=== PATIENT | male | born 1955 | race Two or more races ===

== ENCOUNTER 2019-03-24 18:21 | Inpatient (IN) | payer MEDICARE, MEDICAID ==
[~2019-03-24] VITALS: Ht 152.4 cm; Wt 86.7 kg
[2019-03-24] MEDS ORDERED: SODIUM CHLORIDE 0.9% 1,000ML IVBOLUS ONE (18:30)
[2019-03-24] MEDS ORDERED: KETOROLAC 30 MG/1 ML IVPush ONE (18:30)
[2019-03-24] MEDS ORDERED: SODIUM CHLORIDE FLUSH 10ML SYR IVF ONE (18:30)
[2019-03-24] MEDS ORDERED: ONDANSETRON 2MG/ML, 2ML IVPush ONE (18:30)
[2019-03-24] MEDS ORDERED: PROMETHAZINE 25 MG/ML, 1ML IM ONE (18:30)
--- NOTE | 2019-03-24 18:33 | NUR ---
ANETTE. REPORT RECEIVED FROM EMS. PT STATES "I DON'T FEEL GOOD SINCE 3PM." PT C/O N/V/FAGAN. BS227 HX DM. PT'S AOX4. RESPS EVEN AND UNLABORED. ALL MONITORS IN PLACE. CALL LIGHT WITHIN REACH. EDMD AT BEDSIDE TO EVALUATE.
[2019-03-24 18:40] LABS: BASOPHILS # (AUTO) 0.08 x10^3/uL (0-0.1); BASOPHILS % (AUTO) 1 % (0-1); EOSINOPHILS # (AUTO) 0.01 x10^3/uL (0-0.4); EOSINOPHILS % (AUTO) 0 % (1-7); LYMPHOCYTES # (AUTO) 1.39 x10^3/uL (1-3.4); LYMPHOCYTES % (AUTO) 10 % (22-44); MD NO; MEAN CORPUSCULAR HEMOGLOBIN 24.9 pg (27.5-34.5); MEAN CORPUSCULAR HGB CONC 31.5 g/dL (33.2-36.2); MEAN PLATELET VOLUME 8.8 fL (7.4-10.4); MONOCYTES # (AUTO) 0.41 x10^3/uL (0.2-0.8); MONOCYTES % (AUTO) 3 % (2-9); NEUTROPHILS # (AUTO) 12.49 x10^3/uL (1.8-6.8); NEUTROPHILS % (AUTO) 87 % (42-75); PLATELET COUNT 306 x10^3/uL (130-400); RED BLOOD COUNT 5.24 x10^6/uL (4.38-5.82); RED CELL DISTRIBUTION WIDTH 14.9 % (9.4-14.8)
--- NOTE | 2019-03-24 18:45 | NUR ---
FLU SWAB OBTAINED BY EDMD AT BEDSIDE. PT TOLERATED WELL.
[2019-03-24 18:52] LABS: ALANINE AMINOTRANSFERASE 33 U/L (12-78); ALBUMIN 3.8 g/dL (3.4-5.0); ANION GAP 7 mmol/L (5-15); CALCIUM 8.9 mg/dL (8.5-10.1); CHLORIDE 105 mmol/L (98-107); CREATININE 1.09 mg/dL (0.7-1.3)
[2019-03-24 18:56] LABS: RAPID INFLUENZA A Negative (Negative); RAPID INFLUENZA B Negative (Negative)
[2019-03-24 18:57] LABS: ALKALINE PHOSPHATASE 106 U/L (45-117); BILIRUBIN,TOTAL 0.3 mg/dL (0.2-1.0); TOTAL PROTEIN 7.7 g/dL (6.4-8.2); TROPONIN I < 0.015 ng/mL (0.000-0.045)
--- NOTE | 2019-03-24 19:00 | NUR ---
REPORT GIVEN TO ROSALINO/DESHAWN MEDINA.
--- NOTE | 2019-03-24 19:08 | NUR ---
PT MEDICATED PER JUN. PT TO XRAY AT THIS TIME
[2019-03-24] MEDS ORDERED: OMNIPAQUE 350 MG/ML, 100ML BOTTLE ONE (19:57)
[2019-03-24 20:01] LABS: MICROSCOPIC AUTO
[2019-03-24 20:05] LABS: CULTURE INDICATED? NO
--- NOTE | 2019-03-24 20:12 | NUR ---
PT RESTING ON [facility] AT BEDSIDE, CALL LIGHT IN REACH. ANABELL
[2019-03-24] MEDS ORDERED: LIDOCAINE 1%, 10ML INFIL ONE (21:00)
[2019-03-24] MEDS ORDERED: LIDOCAINE-MPF 1%, 5ML ONE (21:05)
[2019-03-24] MEDS ORDERED: ACETAMINOPHEN 500 MG TABLET ONE (21:42)
--- NOTE | 2019-03-24 21:48 | NUR ---
ERP AT BEDSIDE FOR LP. SPINAL FLUID COLLECTED SUCCESSFULLY. PT PLACED IN SUPINE POSITION WITH LIGHTS OFF FOR COMFORT. PT GIVEN 1G TYLENOL PER MD VERBAL ORDER AT THIS TIME
[2019-03-24 22:03] LABS: GLUCOSE, CSF 106 mg/dL (40-80); TOTAL PROTEIN,CSF 229 mg/dL (15-45)
--- NOTE | 2019-03-24 22:43 | NUR ---
PT RESTING ON GURNEY LIGHTS OFF, CALL LIGHT WITHIN REACH. PT STS MINOR IMPROVEMENT SINCE TYLENOL
[2019-03-24] MEDS ORDERED: DEXAMETHASONE 4 MG/ML, 1ML IVPush ONE (23:00)
[2019-03-24] MEDS ORDERED: CEFTRIAXONE 2,000 MG in SODIUM CHLORIDE 0.9% 50 ML IVPB ONE (23:00)
[2019-03-24] MEDS ORDERED: VANCOMYCIN PER PHARMACY MC PRN (23:00)
[2019-03-24] MEDS ORDERED: DEXAMETHASONE 4 MG/ML, 5ML ONE (23:12)
[2019-03-24] MEDS ORDERED: CEFTRIAXONE PMX 1GM/50ML 50 ML ONE (23:12)
[2019-03-24] MEDS ORDERED: CEFTRIAXONE PMX 2GM/50ML 50 ML ONE (23:24)
[2019-03-24] MEDS ORDERED: PLEASE ENTER ALLERGIES MC SCH (23:30)
[2019-03-24] MEDS ORDERED: VANCOMYCIN 1,600 MG in SODIUM CHLORIDE 0.9% 250 ML IV ONE (23:45)
--- NOTE | 2019-03-25 00:10 | NUR ---
PT MEDICATED PER JUN. VSS, NADN CALL LIGHT WITHIN REACH
[2019-03-25] MEDS ORDERED: POLYETHYLENE GLYCOL 17 GM PACKET PO PRN (00:30)
[2019-03-25] MEDS ORDERED: KETOROLAC 30 MG/1 ML IV PRN (00:30)
[2019-03-25] MEDS ORDERED: BISACODYL 10 MG SUPP PR PRN (00:30)
[2019-03-25] MEDS ORDERED: morphine SULFATE 10 MG/ML, 1ML IVPush PRN (00:30)
[2019-03-25] MEDS ORDERED: PROMETHAZINE 25 MG/ML, 1ML IM PRN (00:30)
[2019-03-25] MEDS ORDERED: hydrALAzine 20 MG/ML, 1ML IVPush PRN (00:30)
[2019-03-25] MEDS ORDERED: ONDANSETRON ODT 4 MG PO PRN (00:30)
[2019-03-25] MEDS ORDERED: DOCUSATE 100 MG CAPSULE PO PRN (00:30)
[2019-03-25] MEDS ORDERED: ONDANSETRON 2MG/ML, 2ML IVPush PRN (00:30)
[2019-03-25 01:06] LABS: FREE T4 (FREE THYROXINE) 0.97 ng/dL (0.76-1.46); HEMOGLOBIN A1C 8.3 % (4.2-6.3)
[2019-03-25 01:55] VITALS: BP 151/78
[2019-03-25] MEDS: OXYcodone IR 5MG TABLET PO PRN ×4 (02:27→19:40)
[2019-03-25] MEDS: SODIUM CHLORIDE 0.9% 1,000 ML IV SCH (02:28)
[2019-03-25] MEDS: ENOXAPARIN 40 MG/0.4 ML SQ SCH (02:28)
[2019-03-25] MEDS ORDERED: METF10007 PO (03:13)
[2019-03-25 05:48] LABS: BASOPHILS # (AUTO) 0.02 x10^3/uL (0-0.1); BASOPHILS % (AUTO) 0 % (0-1); EOSINOPHILS % (AUTO) 0 % (1-7); LYMPHOCYTES # (AUTO) 0.77 x10^3/uL (1-3.4); LYMPHOCYTES % (AUTO) 6 % (22-44); MD NO; MEAN CORPUSCULAR HEMOGLOBIN 24.6 pg (27.5-34.5); MEAN CORPUSCULAR HGB CONC 31.8 g/dL (33.2-36.2); MEAN CORPUSCULAR VOLUME 77.4 fL (81-97); MEAN PLATELET VOLUME 8.6 fL (7.4-10.4); MONOCYTES # (AUTO) 0.04 x10^3/uL (0.2-0.8); MONOCYTES % (AUTO) 0 % (2-9); NEUTROPHILS # (AUTO) 12.88 x10^3/uL (1.8-6.8); NEUTROPHILS % (AUTO) 94 % (42-75); PLATELET COUNT 309 x10^3/uL (130-400); RED BLOOD COUNT 5.07 x10^6/uL (4.38-5.82); RED CELL DISTRIBUTION WIDTH 15.1 % (9.4-14.8)
[2019-03-25] MEDS: ACETAMINOPHEN 325 MG TABLET PO PRN ×3 (05:49→21:10)
[2019-03-25 05:56] LABS: ALANINE AMINOTRANSFERASE 33 U/L (12-78); ALBUMIN 3.6 g/dL (3.4-5.0); ANION GAP 6 mmol/L (5-15); CALCIUM 8.7 mg/dL (8.5-10.1); CHLORIDE 104 mmol/L (98-107)
[2019-03-25 05:59] LABS: ALKALINE PHOSPHATASE 86 U/L (45-117); BILIRUBIN,TOTAL 0.4 mg/dL (0.2-1.0); CHOL/HDL RATIO 2.6; CHOLESTEROL, TOTAL 138 mg/dL (140-239); CREATININE 0.99 mg/dL (0.7-1.3); HDL CHOL % 38 % (26-37); HDL CHOLESTEROL (DIRECT) 53 mg/dL (40-60); LDL CHOLESTEROL,CALCULATED 72 mg/dL (54-169); LDL/HDL RATIO 1.4 (0.5-3.0); TOTAL PROTEIN 7.4 g/dL (6.4-8.2); TRIGLYCERIDES 64 mg/dL (50-200); VLDL CHOLESTEROL 13 mg/dL (0-25)
[2019-03-25] MEDS ORDERED: PHARMACOKINETIC CONSULTATION MC ONE (06:00)
[2019-03-25] MEDS ORDERED: PHARMACOKINETIC MONITORING MC PRN (06:00)
[2019-03-25] MEDS ORDERED: VANCOMYCIN PER PHARMACY MC PRN (06:00)
[2019-03-25 06:11] VITALS: BP 136/71
[2019-03-25] MEDS: INSULIN LISPRO 100 UNITS/ML, PEN SQ-INSULIN SCH ×4 (07:00→21:43)
[2019-03-25] MEDS ORDERED: ACYCLOVIR 700 MG in SODIUM CHLORIDE 0.9% 100 ML IV SCH ×2 (08:00)
[2019-03-25] MEDS ORDERED: PROPOFOL 10 MG/ML, 20ML ONE (10:05)
[2019-03-25] MEDS ORDERED: DEXAMETHASONE 4 MG/ML, 1ML ONE (10:05)
[2019-03-25] MEDS ORDERED: ONDANSETRON 2MG/ML, 2ML ONE (10:05)
[2019-03-25] MEDS ORDERED: CEFOTETAN PMX 2GM/50ML 50 ML IVPB ONE (10:05)
[2019-03-25 13:48] VITALS: BP 130/74
[2019-03-25] MEDS ORDERED: MAGNESIUM SULFATE PMX 2GM/50ML 50 ML IV ONE (16:30)
[2019-03-25] MEDS: SODIUM CHLORIDE 0.9% IV SCH (17:25)
[2019-03-25] MEDS: ACYCLOVIR IV SCH (17:25)
[2019-03-25 19:00] VITALS: BP 161/60
[2019-03-25] MEDS: VANCOMYCIN 1,700 MG in SODIUM CHLORIDE 0.9% 250 ML IV SCH (21:09)
[2019-03-25] MEDS: CEFTRIAXONE PMX 2GM/50ML 50 ML IV SCH (23:24)
[2019-03-26 01:03] VITALS: BP 114/57
[2019-03-26] MEDS: ACYCLOVIR IV SCH ×3 (01:05→17:00)
[2019-03-26] MEDS: SODIUM CHLORIDE 0.9% IV SCH ×3 (01:05→17:00)
[2019-03-26] MEDS ORDERED: VANCOMYCIN 1,600 MG in SODIUM CHLORIDE 0.9% 250 ML IV SCH (02:30)
[2019-03-26] MEDS: SODIUM CHLORIDE 0.9% 1,000 ML IV SCH (04:49)
[2019-03-26] MEDS: ENOXAPARIN 40 MG/0.4 ML SQ SCH (04:49)
[2019-03-26] MEDS: OXYcodone IR 5MG TABLET PO PRN ×4 (04:59→22:45)
[2019-03-26] MEDS: INSULIN LISPRO 100 UNITS/ML, PEN SQ-INSULIN SCH ×4 (09:31→22:17)
[2019-03-26 10:01] LABS: ANION GAP 7 mmol/L (5-15); CALCIUM 7.9 mg/dL (8.5-10.1); CHLORIDE 104 mmol/L (98-107)
[2019-03-26 10:02] LABS: CREATININE 1.04 mg/dL (0.7-1.3)
[2019-03-26] MEDS: VANCOMYCIN 1,700 MG in SODIUM CHLORIDE 0.9% 250 ML IV SCH ×2 (10:10→22:16)
[2019-03-26 10:14] LABS: BASOPHILS # (AUTO) 0.08 x10^3/uL (0-0.1); BASOPHILS % (AUTO) 1 % (0-1); EOSINOPHILS # (AUTO) 0.01 x10^3/uL (0-0.4); EOSINOPHILS % (AUTO) 0 % (1-7); LYMPHOCYTES # (AUTO) 2.08 x10^3/uL (1-3.4); LYMPHOCYTES % (AUTO) 18 % (22-44); MD SCAN; MEAN CORPUSCULAR HEMOGLOBIN 24.2 pg (27.5-34.5); MEAN CORPUSCULAR HGB CONC 31.2 g/dL (33.2-36.2); MEAN CORPUSCULAR VOLUME 77.5 fL (81-97); MEAN PLATELET VOLUME 8.8 fL (7.4-10.4); MONOCYTES # (AUTO) 1.08 x10^3/uL (0.2-0.8); MONOCYTES % (AUTO) 9 % (2-9); NEUTROPHILS # (AUTO) 8.59 x10^3/uL (1.8-6.8); NEUTROPHILS % (AUTO) 73 % (42-75); PLATELET COUNT 250 x10^3/uL (130-400); RED BLOOD COUNT 4.87 x10^6/uL (4.38-5.82); RED CELL DISTRIBUTION WIDTH 15.2 % (9.4-14.8)
[2019-03-26] MEDS ORDERED: METHOCARBAMOL 750 MG TABLET PO PRN (10:30)
[2019-03-26 13:05] VITALS: BP 119/63
[2019-03-26 18:24] VITALS: BP 167/89
[2019-03-26 19:10] VITALS: BP 145/71
[2019-03-26] MEDS: INSULIN GLARGINE 100 UNITS/ML, PEN SQ-INSULIN SCH (22:16)
[2019-03-26] MEDS ORDERED: TEMAZEPAM 15 MG CAPSULE PO ONE (22:30)
[2019-03-27] MEDS: CEFTRIAXONE PMX 2GM/50ML 50 ML IV SCH ×2 (00:27→00:30)
[2019-03-27] MEDS: ACYCLOVIR IV SCH ×3 (01:26→17:19)
[2019-03-27] MEDS: SODIUM CHLORIDE 0.9% IV SCH ×3 (01:26→17:19)
[2019-03-27 01:37] VITALS: BP 148/76
[2019-03-27 06:33] LABS: BASOPHILS # (AUTO) 0.09 x10^3/uL (0-0.1); BASOPHILS % (AUTO) 1 % (0-1); EOSINOPHILS # (AUTO) 0.02 x10^3/uL (0-0.4); EOSINOPHILS % (AUTO) 0 % (1-7); LYMPHOCYTES # (AUTO) 1.83 x10^3/uL (1-3.4); LYMPHOCYTES % (AUTO) 13 % (22-44); MD NO; MEAN CORPUSCULAR HEMOGLOBIN 24.1 pg (27.5-34.5); MEAN CORPUSCULAR HGB CONC 31.2 g/dL (33.2-36.2); MEAN CORPUSCULAR VOLUME 77.3 fL (81-97); MEAN PLATELET VOLUME 8.3 fL (7.4-10.4); MONOCYTES # (AUTO) 1.01 x10^3/uL (0.2-0.8); MONOCYTES % (AUTO) 7 % (2-9); NEUTROPHILS # (AUTO) 11.01 x10^3/uL (1.8-6.8); NEUTROPHILS % (AUTO) 79 % (42-75); PLATELET COUNT 259 x10^3/uL (130-400); RED BLOOD COUNT 5.11 x10^6/uL (4.38-5.82); RED CELL DISTRIBUTION WIDTH 14.8 % (9.4-14.8)
[2019-03-27 06:39] LABS: ANION GAP 7 mmol/L (5-15); CALCIUM 8.2 mg/dL (8.5-10.1); CHLORIDE 102 mmol/L (98-107); CREATININE 0.77 mg/dL (0.7-1.3)
[2019-03-27] MEDS: INSULIN LISPRO 100 UNITS/ML, PEN SQ-INSULIN SCH ×4 (08:48→21:43)
[2019-03-27] MEDS: ENOXAPARIN 40 MG/0.4 ML SQ SCH (08:49)
[2019-03-27] MEDS: INSULIN GLARGINE 100 UNITS/ML, PEN SQ-INSULIN SCH (08:49)
[2019-03-27 09:23] VITALS: BP 149/83
[2019-03-27] MEDS: VANCOMYCIN 1,700 MG in SODIUM CHLORIDE 0.9% 250 ML IV SCH ×2 (11:02→23:07)
[2019-03-27] MEDS: OXYcodone IR 5MG TABLET PO PRN ×2 (11:32→19:55)
[2019-03-27 15:54] VITALS: BP 121/73
[2019-03-27 21:00] VITALS: BP 151/84
[2019-03-27] MEDS ORDERED: INSULIN GLARGINE 100 UNITS/ML, PEN SQ-INSULIN SCH (21:00)
[2019-03-28 01:02] VITALS: BP 128/78
[2019-03-28] MEDS: CEFTRIAXONE PMX 2GM/50ML 50 ML IV SCH (01:02)
[2019-03-28] MEDS: SODIUM CHLORIDE 0.9% IV SCH ×3 (02:05→17:12)
[2019-03-28] MEDS: ACYCLOVIR IV SCH ×3 (02:05→17:12)
[2019-03-28 04:30] LABS: BASOPHILS # (AUTO) 0.05 x10^3/uL (0-0.1); BASOPHILS % (AUTO) 0 % (0-1); EOSINOPHILS # (AUTO) 0.14 x10^3/uL (0-0.4); EOSINOPHILS % (AUTO) 1 % (1-7); LYMPHOCYTES # (AUTO) 1.71 x10^3/uL (1-3.4); LYMPHOCYTES % (AUTO) 15 % (22-44); MD NO; MEAN CORPUSCULAR HEMOGLOBIN 24.8 pg (27.5-34.5); MEAN CORPUSCULAR HGB CONC 31.2 g/dL (33.2-36.2); MEAN CORPUSCULAR VOLUME 79.7 fL (81-97); MEAN PLATELET VOLUME 8.9 fL (7.4-10.4); MONOCYTES # (AUTO) 0.98 x10^3/uL (0.2-0.8); MONOCYTES % (AUTO) 8 % (2-9); NEUTROPHILS # (AUTO) 8.95 x10^3/uL (1.8-6.8); NEUTROPHILS % (AUTO) 76 % (42-75); PLATELET COUNT 260 x10^3/uL (130-400); RED BLOOD COUNT 4.74 x10^6/uL (4.38-5.82); RED CELL DISTRIBUTION WIDTH 15.1 % (9.4-14.8)
[2019-03-28 04:40] LABS: CHLORIDE 104 mmol/L (98-107)
[2019-03-28 04:48] LABS: % IRON SATURATION 7 % (20-55); ALANINE AMINOTRANSFERASE 20 U/L (12-78); ALBUMIN 2.7 g/dL (3.4-5.0); ALKALINE PHOSPHATASE 62 U/L (45-117); ANION GAP 4 mmol/L (5-15); BILIRUBIN,TOTAL 0.7 mg/dL (0.2-1.0); CALCIUM 8.1 mg/dL (8.5-10.1); CREATININE 0.75 mg/dL (0.7-1.3); IRON LEVEL 18 mcg/dL (65-175); TOTAL IRON BINDING CAPACITY 273 mcg/dL (250-450); TOTAL PROTEIN 6.7 g/dL (6.4-8.2)
[2019-03-28 06:07] VITALS: BP 129/75
[2019-03-28] MEDS: INSULIN LISPRO 100 UNITS/ML, PEN SQ-INSULIN SCH ×4 (09:36→20:54)
[2019-03-28] MEDS: INSULIN GLARGINE 100 UNITS/ML, PEN SQ-INSULIN SCH ×2 (09:37→20:54)
[2019-03-28] MEDS: ENOXAPARIN 40 MG/0.4 ML SQ SCH (09:38)
[2019-03-28] MEDS: VANCOMYCIN 1,700 MG in SODIUM CHLORIDE 0.9% 250 ML IV SCH (12:17)
[2019-03-28] MEDS: OXYcodone IR 5MG TABLET PO PRN (12:31)
[2019-03-28] MEDS: IRON SUCROSE COMPLEX 100MG/5ML IV SCH (13:51)
[2019-03-28 14:00] VITALS: BP 138/77
[2019-03-28] MEDS ORDERED: GADOTERATE 7.5 MMOL/15 ML SYR ONE (14:57)
[2019-03-28 19:59] VITALS: BP 129/72
[2019-03-29] MEDS: SODIUM CHLORIDE 0.9% IV SCH ×3 (01:16→17:29)
[2019-03-29] MEDS: ACYCLOVIR IV SCH ×3 (01:16→17:29)
[2019-03-29 01:18] VITALS: BP 117/67
[2019-03-29 06:08] LABS: BASOPHILS # (AUTO) 0.05 x10^3/uL (0-0.1); BASOPHILS % (AUTO) 1 % (0-1); EOSINOPHILS # (AUTO) 0.13 x10^3/uL (0-0.4); EOSINOPHILS % (AUTO) 1 % (1-7); LYMPHOCYTES # (AUTO) 1.28 x10^3/uL (1-3.4); LYMPHOCYTES % (AUTO) 13 % (22-44); MD NO; MEAN CORPUSCULAR HEMOGLOBIN 24.8 pg (27.5-34.5); MEAN CORPUSCULAR HGB CONC 31.3 g/dL (33.2-36.2); MEAN CORPUSCULAR VOLUME 79.4 fL (81-97); MEAN PLATELET VOLUME 9.1 fL (7.4-10.4); MONOCYTES # (AUTO) 0.84 x10^3/uL (0.2-0.8); MONOCYTES % (AUTO) 8 % (2-9); NEUTROPHILS # (AUTO) 7.73 x10^3/uL (1.8-6.8); NEUTROPHILS % (AUTO) 77 % (42-75); PLATELET COUNT 279 x10^3/uL (130-400); RED BLOOD COUNT 4.78 x10^6/uL (4.38-5.82); RED CELL DISTRIBUTION WIDTH 15.1 % (9.4-14.8)
[2019-03-29 08:20] VITALS: BP 128/75
[2019-03-29] MEDS: IRON SUCROSE COMPLEX 100MG/5ML IV SCH (08:45)
[2019-03-29] MEDS: INSULIN GLARGINE 100 UNITS/ML, PEN SQ-INSULIN SCH ×2 (08:45→21:44)
[2019-03-29] MEDS: INSULIN LISPRO 100 UNITS/ML, PEN SQ-INSULIN SCH ×4 (08:45→21:43)
[2019-03-29] MEDS: ENOXAPARIN 40 MG/0.4 ML SQ SCH (08:45)
[2019-03-29 13:03] VITALS: BP 161/90
[2019-03-29 20:42] VITALS: BP 127/72
[2019-03-30] MEDS: ACYCLOVIR IV SCH ×3 (01:33→18:15)
[2019-03-30] MEDS: SODIUM CHLORIDE 0.9% IV SCH ×3 (01:33→18:15)
[2019-03-30 01:35] VITALS: BP 109/63
[2019-03-30 06:53] VITALS: BP 114/65
[2019-03-30] MEDS: IRON SUCROSE COMPLEX 100MG/5ML IV SCH (08:02)
[2019-03-30] MEDS: INSULIN LISPRO 100 UNITS/ML, PEN SQ-INSULIN SCH ×4 (08:02→20:31)
[2019-03-30] MEDS: INSULIN GLARGINE 100 UNITS/ML, PEN SQ-INSULIN SCH ×2 (08:02→20:32)
[2019-03-30] MEDS: ENOXAPARIN 40 MG/0.4 ML SQ SCH (08:02)
[2019-03-30 14:04] VITALS: BP 133/75
[2019-03-30 19:10] VITALS: BP 133/73
[2019-03-31] MEDS: SODIUM CHLORIDE 0.9% IV SCH ×2 (01:06→09:07)
[2019-03-31] MEDS: ACYCLOVIR IV SCH ×2 (01:06→09:07)
[2019-03-31 01:23] VITALS: BP 117/76
[2019-03-31 06:45] VITALS: BP 111/70
[2019-03-31] MEDS: INSULIN GLARGINE 100 UNITS/ML, PEN SQ-INSULIN SCH (08:42)
[2019-03-31] MEDS: INSULIN LISPRO 100 UNITS/ML, PEN SQ-INSULIN SCH ×2 (08:43→12:08)
[2019-03-31] MEDS: IRON SUCROSE COMPLEX 100MG/5ML IV SCH (08:43)
[2019-03-31] MEDS: ENOXAPARIN 40 MG/0.4 ML SQ SCH (08:43)
[2019-03-31] MEDS ORDERED: VALA10004 PO (11:18)
[2019-03-31 12:22] VITALS: BP 119/75
== END 2019-03-31 15:00 | disposition home or self-care (01) | DRG 871 ==
LOC: ED 20:54 → EDIP 03-25 00:03 → 3N 03-25 01:51
PROVIDERS: ADMIT Internal Medicine; ATTEND Internal Medicine
PROC: 009U3ZX Drainage of Spinal Canal, Percutaneous Approach, Diagnostic (ICD-10-PCS; principal; 2019-03-25)
DX: A41.9 Sepsis, unspecified organism (principal); K85.00 Idiopathic acute pancreatitis without necrosis or infection; A87.9 Viral meningitis, unspecified; J96.11 Chronic respiratory failure with hypoxia; A60.00 Herpesviral infection of urogenital system, unspecified; D50.9 Iron deficiency anemia, unspecified; E11.65 Type 2 diabetes mellitus with hyperglycemia; G43.C0 Periodic headache syndromes in child or adult, not intractable; I10 Essential (primary) hypertension; K43.9 Ventral hernia without obstruction or gangrene; Z79.84 Long term (current) use of oral hypoglycemic drugs; Z91.19 Patient's noncompliance with other medical treatment and regimen
CPT/HCPCS: 36415; 70450; 70553; 71045; 74022; 74177; 80048; 80053; 80061; 80202; 81001; 82945; 82962; 83036; 83540; 83550; 83690; 83735; 84157; 84439; 84443; 84484; 85025; 86694; 86695; 86696; 87040; 87070; 87205; 87252; 87400; 87529; 89051; 93005; 96361; 96372; 96374; 99285; G0378; J0133; J0696; J1100; J1650; J1756; J1885; J2405; J2550; J2704; J3370; Q9967; A9575; J1815; J3475; J3490; J7030; J7050